=== PATIENT | male | born 1995 | race Caucasian/White ===

== ENCOUNTER 2017-07-18 22:22 | Emergency (ER) | payer BC ==
[2017-07-18] MEDS ORDERED: NORCO 5/325 MG PO ONE ×2 (22:44)
[2017-07-18] MEDS ORDERED: Zithromax 250 MG TABLET PO ONE (22:44)
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
[2017-07-18 22:52] VITALS: O2SAT 99
[2017-07-18] MEDS ORDERED: Zithromax 250 MG TABLET ONE (22:54)
[2017-07-18] MEDS ORDERED: NORCO 5/325 MG ONE (22:55)
[2017-07-18 23:20] VITALS: BP 111/63; PULSE 62
== END 2017-07-18 23:10 | disposition home or self-care (01) ==
LOC: ED 22:22
DX: H66.92 Otitis media, unspecified, left ear (principal); Z72.0 Tobacco use
CPT/HCPCS: 99283; A9270-GY

== ENCOUNTER 2017-10-01 09:25 | Emergency (ER) | payer BC ==
[2017-10-01] MEDS ORDERED: MOTRIN 400 MG PO ONE (09:38)
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
[2017-10-01 09:46] VITALS: O2SAT 97
[2017-10-01] MEDS ORDERED: MOTRIN 400 MG ONE (09:59)
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
[2017-10-01 10:24] VITALS: BP 121/84; PULSE 65
== END 2017-10-01 10:22 | disposition home or self-care (01) ==
LOC: ED 09:25
DX: S83.92XA Sprain of unspecified site of left knee, initial encounter (principal); M25.562 Pain in left knee; V86.99XA Unspecified occupant of other special all-terrain or other off-road motor vehicle injured in nontraffic accident, initial encounter
CPT/HCPCS: 73562; 99283; L1830; A9270-GY

== ENCOUNTER 2017-11-11 23:45 | Emergency (ER) | payer BC ==
[2017-11-11] MEDS ORDERED: TORAdol 30 mg Injection IV ONE (23:53)
[2017-11-11] MEDS ORDERED: Sodium Chloride 0.9% 1000 ML 1,000 ML IV STA (23:53)
[2017-11-11] MEDS ORDERED: Zofran 4 MG/2 ML VIAL IV ONE (23:53)
[2017-11-11] MEDS ORDERED: MORPHINE SULFATE 10 MG/ML IV ONE (23:53)
[2017-11-11] MEDS ORDERED: Adacel Vial IM ONE ×2 (23:54→23:58)
[2017-11-11] MEDS ORDERED: Zofran 4 MG/2 ML VIAL ONE (23:57)
[2017-11-11] MEDS ORDERED: TORAdol 30 mg Injection ONE (23:57)
[2017-11-11] MEDS ORDERED: MORPHINE SULFATE 10 MG/ML ONE (23:57)
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
[2017-11-11] MEDS ORDERED: Sodium Chloride 0.9% 1000 ML 1,000 ML ONE (23:58)
[2017-11-12 00:20] LABS: BASOPHIL % 0.3 % (0.0-0.4); Basophil (Absolute #) 0.05 (0-0.4); Eosinophil % 0.9 % (0.00-5.0); Eosinophil (Absolute #) 0.14 (0-0.5); Granulocyte Absolute (ANC) 10.13 (1.4-6.9); Granulocytes % 68.8 % (36.0-66.0); Hematocrit 45.5 % (42-50); Hemoglobin 15.9 gm/dl (12.5-18.0); Lymphocyte (Absolute #) 2.72 (1.0-4.6); Lymphocytes % 18.5 % (24.0-44.0); Mean Cell Volume 88.5 fl (78-100); Mean Corpuscular Hemoglobin 30.9 pg (26-32); Mean Corpuscular Hgb Concent. 34.9 g/dl (32-36); Mean Platelet Volume 9.5 fl (6-9.5); Monocytes % 11.5 % (0.0-12.0); Platelet Count 319 K/mm3 (150-450); Red Blood Count 5.14 M/mm3 (4.1-5.6); Red Cell Distribution Width 12.3 % (11.5-14.0); White Blood Count 14.7 K/mm3 (4.0-10.5)
[2017-11-12] MEDS ORDERED: MORPHINE SULFATE 4 MG INJ IV ONE (00:36)
[2017-11-12 00:38] LABS: ANION GAP 18.8 MEQ/L (5-15); BLOOD UREA NITROGEN 11 mg/dL (9-20); CHLORIDE 102 mmol/L (98-107); Calcium 10.3 mg/dL (8.4-10.2); Carbon Dioxide 24 mmol/L (22-30); Creatinine 1 0.86 mg/dL (0.66-1.25); Glucose 105 mg/dL (74-106); Potassium 4.1 mmol/L (3.5-5.1); SODIUM 140 mmol/L (137-145)
[2017-11-12 00:40] VITALS: BP 124/90; O2SAT 98
[2017-11-12] MEDS ORDERED: MORPHINE SULFATE 4 MG INJ ONE (00:50)
[2017-11-12 00:56] VITALS: PULSE 84
== END 2017-11-12 01:02 | disposition short-term general hospital (02) ==
LOC: ED 23:45
DX: T24.101A Burn of first degree of unspecified site of right lower limb, except ankle and foot, initial encounter (principal); T24.201A Burn of second degree of unspecified site of right lower limb, except ankle and foot, initial encounter; T24.102A Burn of first degree of unspecified site of left lower limb, except ankle and foot, initial encounter; T24.202A Burn of second degree of unspecified site of left lower limb, except ankle and foot, initial encounter; X08.8XXA Exposure to other specified smoke, fire and flames, initial encounter; Y92.009 Unspecified place in unspecified non-institutional (private) residence as the place of occurrence of the external cause
CPT/HCPCS: 36000; 36415; 80048; 85025; 90471; 90715; 96374; 99284; J1885; J2270; J2405

== ENCOUNTER 2018-06-22 19:15 | Emergency (ER) | payer BC ==
[2018-06-22 19:31] VITALS: BP 118/73; PULSE 75; O2SAT 98
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
[2018-06-22] MEDS ORDERED: TORAdol 30 mg Injection IM ONE (19:57)
[2018-06-22] MEDS ORDERED: TORAdol 30 mg Injection ONE (20:09)
[2018-06-22] MEDS ORDERED: CLEOCIN 150 MG CAPSULE PO ONE (21:41)
[2018-06-22] MEDS ORDERED: CLEOCIN 150 MG CAPSULE ONE (21:43)
--- NOTE | 2018-06-23 08:41 | XRAY ---
Indication: Left chest pain, cough, fever, and sore throat. Comparison: February 15, 2018. PA/lateral chest again demonstrates normal heart, lungs, and bony thorax.
== END 2018-06-22 22:25 | disposition home or self-care (01) ==
LOC: ED 19:15
DX: J02.9 Acute pharyngitis, unspecified (principal); R13.10 Dysphagia, unspecified
CPT/HCPCS: 36415; 71046; 86308; 87651; 96372; 99284; J1885; A9270-GY

== ENCOUNTER 2018-11-10 08:19 | Emergency (ER) | payer BC, OTHER ==
[2018-11-10 08:39] VITALS: BP 113/57; O2SAT 98
--- NOTE | 2018-11-10 08:44 | ERPHSYRPT ---
- History of Present Illness Time Seen by Provider: 11/10/18 08:39 Source: patient Exam Limitations: no limitations Patient Subjective Stated Complaint: pt reports injuring his left index finger while working yesterday, states that he was working with a drill when it became clogged w dust, he was attempting to remove the build up when his finger got caught between the drill bit and another peice of metal. pt denies any other injury. Triage Nursing Assessment: pt is aox3, pupils perrl, afebrile, resps easy and non labored, radial pulses strong and equal, cap refill < 3 seconds, pt skin pink warm dry. 1 cm laceration noted to the left index finger, lateral from the nail bed. sensation is intact. no active bleeding. swelling noted to distal finger. Physician History: This is a 23-year-old white male with complaint of pain in his left index finger since yesterday. According to patient he was at work he caught his left index finger between a drill but a piece of metal yesterday he has pain swelling of his left index finger has a laceration of approximately 1 cm on the ulnar aspect of the left index finger. She states that the area was cleansed and liquid skin was placed on the area yesterday. Patient states his tetanus is up-to-date. Past medical history frontal lobe injury skull fracture. Past surgical history vasectomy myringotomy tubes.. Social history denies tobacco alcohol or illicit drug use Occurred: yesterday Method of Injury: other (caught between drill bit and metal at work) Quality: constant Severity of Pain-Max: mild Severity of Pain-Current: mild Extremities Pain Location: 2nd finger: left Modifying Factors: Improves With: nothing Associated Symptoms: none Allergies/Adverse Reactions: amoxicillin [Amoxicillin] Allergy (Verified 11/10/18 08:40) loracarbef [From Lorabid] Allergy (Verified 11/10/18 08:40) sulfamethoxazole [From Septra] Allergy (Verified 11/10/18 08:40) trimethoprim [From Septra] Allergy (Verified 11/10/18 08:40) Home Medications: No Reportable Medications [No Reported Medications] 11/10/18 [History] Hx Tetanus, Diphtheria Vaccination/Date Given: Yes Hx Influenza Vaccination/Date Given: No Hx Pneumococcal Vaccination/Date Given: No Immunizations Up to Date: Yes - Review of Systems Constitutional: No Fever, No Chills Eyes: No Symptoms Ears, Nose, & Throat: No Symptoms Respiratory: No Cough, No Dyspnea Cardiac: No Chest Pain, No Edema, No Syncope Abdominal/Gastrointestinal: No Abdominal Pain, No Nausea, No Vomiting, No Diarrhea Genitourinary Symptoms: No Dysuria Musculoskeletal: Other (pain left distal index finger) Skin: Other (1 cm laceration left index finger distally ulnar aspect) Neurological: No Dizziness, No Focal Weakness, No Sensory Changes Psychological: No Symptoms Endocrine: No Symptoms All Other Systems: Reviewed and Negative - Past Medical History Pertinent Past Medical History: Yes Neurological History: Other ENT History: No Pertinent History Cardiac History: No Pertinent History Respiratory History: No Pertinent History Endocrine Medical History: No Pertinent History Musculoskeletal History: Fractures GI Medical History: No Pertinent History History: No Pertinent History Psycho-Social History: No Pertinent History Male Reproductive Disorders: No Pertinent History Other Medical History: frontal lobe damage, skull fracture - Past Surgical History Past Surgical History: Yes Neuro Surgical History: No Pertinent History Cardiac: No Pertinent History Respiratory: No Pertinent History Gastrointestinal: No Pertinent History Genitourinary: No Pertinent History Musculoskeletal: No Pertinent History Male Surgical History: Vasectomy Other Surgical History: TUBES IN EARS. - Social History Smoking Status: Never smoker How long have you smoked: 2 years Exposure to second hand smoke: Yes Drug Use: none Patient Lives Alone: No - Nursing Vital Signs Nursing Vital Signs: Initial Vital Signs Temperature 97.6 F 11/10/18 08:23 Pulse Rate 60 11/10/18 08:23 Respiratory Rate 20 11/10/18 08:23 Blood Pressure 113/57 11/10/18 08:23 O2 Sat by Pulse Oximetry 98 11/10/18 08:23 Pain Scale Pain Intensity 0 - Physical Exam General Appearance: no apparent distress Eyes, Ears, Nose, Throat Exam: moist mucous membranes Neck Exam: non-tender, supple Cardiovascular/Respiratory Exam: chest non-tender, normal breath sounds, regular rate/rhythm, no respiratory distress Abdominal Exam: non-tender, No guarding Back Exam: normal inspection, No vertebral tenderness Shoulder Exam: normal inspection, non-tender, no evidence of injury, normal ROM Elbow/Forearm Exam: normal inspection, non-tender, no evidence of injury, normal ROM Wrist Exam: normal inspection, non-tender, no evidence of injury, normal ROM Hand Exam: No normal inspection (edema left distal index finger overlying the distal phalanx, 1 cm laceration ulnar aspect left distal index finger near the PIP joint wound eedges approximated. Sensation intact left distal index finger good capillary refill left distal index fingerand all fingers and all fingers) Neuro/Tendon Exam: normal sensation, normal motor functions Mental Status Exam: alert, oriented x 3, cooperative Skin Exam: other (1 cm laceration left distal index finger ulnar aspect) SpO2 Interpretation: normal (98%) SpO2: 98 - Course Nursing assessment & vital signs reviewed: Yes - Radiology Exams Left Other X-ray Interpretation: Discussed w/ radiologist (x-ray left index finger: No bony , articular, or soft tissue abnormalities) Ordered Tests: Active Orders 24 hr Category Date Time Status Splint STAT Care 11/10/18 09:03 Active Wound Care STAT Care 11/10/18 09:02 Active FINGER(S) Stat Exams 11/10/18 08:50 Completed - Progress Progress: improved Progress Note: 11/10/18 09:04 Patient's x-ray left index finger: No bony, articular, or soft tissue abnormalities. Patient with a 1 cm laceration which does not require sutures to his left index finger ulnar aspect. Patient with mild edema to his left distal index finger there is no erythema or signs of infection. Will go ahead and have the nurses clean the area apply bacitracin dressing will give patient finger guard. Will place patient on limited use of left hand. - Departure Departure Disposition: Home Clinical Impression: crush injury left distal index finger Laceration of left index finger Qualifiers: Encounter type: initial encounter Damage to nail status: without damage Foreign body presence: without foreign body Qualified Code(s): S61.211A - Laceration without foreign body of left index finger without damage to nail, initial encounter Condition: Fair Critical Care Time: No Referrals: ROSARIO SCHAEFFER MD [Primary Care Provider] - Additional Instructions: Return home. Tylenol every 4 hours or Motrin every 6 hours as needed for pain. Keep area clean and dry. Bacitracin to area until healed. Use finger guard. Limited use of left hand 48-72 hours. Followup with your company . Return for acute distress or for severe symptoms.
--- NOTE | 2018-11-10 08:58 | XRAY ---
Indication: Pain following injury. Comparison: None 3 views of the left 2nd finger obtained. No bony, articular, or soft tissue abnormalities.
[2018-11-10] MEDS ORDERED: BACIGUENT PACKET TP ONE (09:02)
[2018-11-10 09:45] VITALS: PULSE 76
== END 2018-11-10 09:45 | disposition home or self-care (01) ==
LOC: ED 08:19
DX: S61.211A Laceration without foreign body of left index finger without damage to nail, initial encounter (principal); W23.0XXA Caught, crushed, jammed, or pinched between moving objects, initial encounter; Y93.89 Activity, other specified; Y92.64 Mine or pit as the place of occurrence of the external cause; Y99.0 Civilian activity done for income or pay
CPT/HCPCS: 73140; 99283; A9270-GY

== ENCOUNTER 2019-08-28 08:02 | Emergency (ER) | payer SELFPAY ==
--- NOTE | 2019-08-28 08:39 | ERPHSYRPT ---
- History of Present Illness Time Seen by Provider: 08/28/19 08:34 Source: patient Exam Limitations: no limitations Patient Subjective Stated Complaint: pt reports fever over the weekend, reports that his significant other has tested positive for influenza A. states he also has body aches and was sent home from work. pt reports intermittent non productive cough. Triage Nursing Assessment: pt is aox3, pupils perrl, afebrile, resps easy and non labored, radial pulses strong and equal, cap refill < 3 seconds, pt skin pink warm dry. no cough noted during exam. Physician History: Patient is a 24-year-old male who presents with a complaint of fever chills cough and body ache for 36 hours. Nephric and other was tested on Wednesday and was found to be positive for flu A. He has had no nausea vomiting or diarrhea he has had fever to 102 at home. Patient was sent home from work and reports his sputum is clear. Timing/Duration: hour(s) (36) Cough Quality/Degree: productive cough Modifying Factors: Improves With: coughing Associated Symptoms: fever, chills, chest pain/soreness, cough, muscle aches, nasal congestion Allergies/Adverse Reactions: amoxicillin [Amoxicillin] Allergy (Verified 08/28/19 08:23) loracarbef [From Lorabid] Allergy (Verified 08/28/19 08:23) sulfamethoxazole [From Septra] Allergy (Verified 08/28/19 08:23) trimethoprim [From Septra] Allergy (Verified 08/28/19 08:23) Hx Tetanus, Diphtheria Vaccination/Date Given: Yes Hx Influenza Vaccination/Date Given: No Hx Pneumococcal Vaccination/Date Given: No Immunizations Up to Date: Yes Travel Risk - International Travel Have you traveled outside of the country in past 3 weeks: No Have you or anyone close to you been diagnosed with or: No Do your reside in a community with a known COVID-19 case?: No - Coronavirus Screening Has patient experienced Coronavirus symptoms: No Date of fever onset:: 08/26/19 Date of respiratory symptoms onset:: 08/26/19 - Review of Systems Constitutional: Fever, Chills, Malaise Eyes: No Symptoms Ears, Nose, & Throat: Nose Congestion, Nose Discharge Respiratory: Cough, Wheezing Cardiac: No Symptoms Abdominal/Gastrointestinal: No Symptoms Genitourinary Symptoms: No Symptoms Musculoskeletal: No Symptoms Skin: No Symptoms Neurological: No Symptoms Psychological: No Symptoms Endocrine: No Symptoms Hematologic/Lymphatic: No Symptoms Immunological/Allergic: No Symptoms - Past Medical History Pertinent Past Medical History: Yes Neurological History: Other ENT History: No Pertinent History Cardiac History: No Pertinent History Respiratory History: No Pertinent History Endocrine Medical History: No Pertinent History Musculoskeletal History: Fractures GI Medical History: No Pertinent History History: No Pertinent History Psycho-Social History: No Pertinent History Male Reproductive Disorders: No Pertinent History Other Medical History: frontal lobe damage, skull fracture - Past Surgical History Past Surgical History: Yes Neuro Surgical History: No Pertinent History Cardiac: No Pertinent History Respiratory: No Pertinent History Gastrointestinal: No Pertinent History Genitourinary: No Pertinent History Musculoskeletal: No Pertinent History Male Surgical History: Vasectomy Other Surgical History: TUBES IN EARS. - Social History Smoking Status: Current every day smoker How long have you smoked: 2 years Exposure to second hand smoke: Yes Drug Use: none Patient Lives Alone: Yes - Nursing Vital Signs Nursing Vital Signs: Initial Vital Signs Temperature 99.6 F 08/28/19 08:15 Pulse Rate 77 08/28/19 08:15 Respiratory Rate 20 08/28/19 08:15 Blood Pressure 132/81 08/28/19 08:15 O2 Sat by Pulse Oximetry 97 08/28/19 08:15 Pain Scale Pain Intensity 0 - Physical Exam General Appearance: mild distress, alert Eye Exam: PERRL/EOMI, eyes nml inspection Ears, Nose, Throat Exam: normal ENT inspection, TMs normal, pharynx normal, moist mucous membranes Neck Exam: normal inspection, non-tender, supple, full range of motion Respiratory Exam: normal breath sounds, lungs clear, No respiratory distress Cardiovascular Exam: regular rate/rhythm, normal heart sounds Gastrointestinal/Abdomen Exam: soft, No tenderness Back Exam: normal inspection, No CVA tenderness, No vertebral tenderness Extremity Exam: normal inspection, normal range of motion Neurologic Exam: alert, oriented x 3, cooperative, normal mood/affect, sensation nml, No motor deficits Skin Exam: normal color, warm, dry, No rash Lymphatic Exam: No adenopathy SpO2 Interpretation: normal SpO2: 97 O2 Delivery: Room Air - Course Nursing assessment & vital signs reviewed: Yes Lab/Rad Data: Laboratory Results 08/28/19 Range/Units Unknown Influenza Type A Ag POSITIVE (NEGATIVE) Influenza Type B Ag NEGATIVE (NEGATIVE) RSV (PCR) NEGATIVE (Negative) - Progress Progress: unchanged Air Movement: good Blood Culture(s) Obtained: No Antibiotics given: No - Departure Departure Disposition: Home Clinical Impression: Influenza A Condition: Stable Critical Care Time: No Referrals: ROSARIO SCHAEFFER MD [Primary Care Provider] - Prescriptions: Oseltamivir 75 mg [Tamiflu 75MG Capsule] 75 mg PO BID #10 cap
[2019-08-28 09:09] VITALS: BP 125/75; PULSE 61
[2019-08-28 09:21] LABS: INFLUENZA A POSITIVE (NEGATIVE); INFLUENZA B NEGATIVE (NEGATIVE); RESPIRATORY SYNCTIAL VIRUS NEGATIVE (Negative)
[2019-08-28 09:27] VITALS: O2SAT 97
== END 2019-08-28 09:40 | disposition home or self-care (01) ==
LOC: ED 08:02
DX: J09.X2 Influenza due to identified novel influenza A virus with other respiratory manifestations (principal)
CPT/HCPCS: 87631; 99283